=== PATIENT | male | born 1935 | race Caucasian/White ===

== ENCOUNTER → 2017-05-12 | Outpatient (CLI) | payer MEDICARE, OTHER ==
--- NOTE | 2017-05-12 16:33 | PCVCIMAG ---
APPROVED REPORT Exam: Stress Echocardiogram Indication: Hyperlipidemia, , Hypertension, Pre op Back Surgery Patient Location: Echo lab Stress Nurse: Gali Wray RN Status: routine Ht: 5 ft 10 in BP: 130/80 mmHg Rhythm: NSR Procedure The patient underwent an Exercise Stress Test using the Mayur Protocol. Blood pressure, heart rate, and EKG were monitored. An Echocardiogram was performed by armorer technician in four stages in quad fashion. At peak stress, four selected images were obtained and placed side by side with resting images for comparison. Stress Test Details Stress Test: Exercise stress testing was performed using a Mayur protocol. HR Resting HR: 83 bpmMax Heart Rate (APMHR): 141 bpm Max HR Achieved: 146 bpmTarget HR (85% APMHR): 119 bpm % of APMHR: 103 HR response to stress: Normal HR response to stress BP Resting BP: 130/80 mmHg Max BP: 194/80 mmHg ECG Resting ECG: Sinus Rhythm Stress ECG: Sinus Rhythm ST Change: Normal Maximum ST Deviation: 0 mm Recovery ECG: Sinus Rhythm Recovery ST Change: Normal Recovery ST Deviation: 0 mm Clinical Reason for Termination: Maximal effort Exercise duration: 5 min 18 sec Highest Stage Achieved: Stage 2: 2.5 mph at 12% grade. Exercise capacity: 7.00 METs Overall Exercise Capacity for Age: Poor Angina Score: None Stress ECG Conclusion Clinical: Non-ischemic ECG: Non-ischemic Soria Treadmill Score is 5.0 which is Low risk. Pre-Stress Echo The resting Echocardiogram showed normal left ventricular contractility with an estimated Ejection Fraction of about 55-60%. Normal wall motion in all segments on baseline images. Post-Stress Echo The stress Echocardiogram showed normal left ventricular contractility with an estimated Ejection Fraction of about 60-65%. Normal augmentation of wall motion in all segments on post stress images. Clinical No clinical or ECG evidence for ischemia. Conclusion Clinical Response: Non-ischemic Exercise Capacity: Below Average Stress ECG Response: Non-ischemic Stress Echo Images: Non-ischemic The left ventricle is normal in size and wall thickness in both the rest and stress images. No clinical, EKG or echocardiographic evidence for ischemia. Other Information Study Quality: Fair <Conclusion> The left ventricle is normal in size and wall thickness in both the rest and stress images. No clinical, EKG or echocardiographic evidence for ischemia.
== END | disposition home or self-care (01) ==
LOC: PCVCIMAG 15:37
PROVIDERS: ATTEND Internal Medicine Cardiovascular Disease
DX: Z01.810 Encounter for preprocedural cardiovascular examination (principal); I10 Essential (primary) hypertension; E78.5 Hyperlipidemia, unspecified
CPT/HCPCS: 93325; 93351